=== PATIENT | female | born 1995 | race Caucasian/White ===

== ENCOUNTER 2019-05-17 14:27 | Emergency (ER) | payer OTHER, SELFPAY ==
[2019-05-17 14:28] VITALS: BP 135/81; PULSE 69; RESP 12; TEMP 36.7; O2SAT 99; BMI 22.5
[2019-05-17] MEDS: Ondansetron 4 MG/2 ML Vial IV (15:40)
[2019-05-17] MEDS: 0.9% Normal Saline 1,000 ML 1000 ML IV (15:40)
[2019-05-17 15:58] LABS: Absolute Lymphocyte Count 2.65 X10^3/uL (0.83-4.51); Absolute Neutrophil Count 4.4 X10^3/uL (2.0-7.7); Basophil# 0.02 X10^3/uL; Basophil% 0.3 % (0-1); Eosinophil# 0.16 X10^3/uL; Eosinophils% 2.1 % (0-5); Hematocrit 42.4 % (37-47); Hemoglobin 14.8 g/dL (12.0-15.0); Lymphocyte # 2.65 X10^3/ul (4.0); Lymphocyte % 34.5 % (19-41); Mean Corp Hgb Conc 34.9 g/dL (32-36); Mean Corpuscular Hgb 29.4 pg (27.0-32.0); Mean Corpuscular Volume 84.1 fL (81-99); Mean Platelet Vol. 10.8 fl (6.2-12.0); Monocyte# 0.47 X10^3/uL; Monocyte% 6.1 % (0-10); NRBC Flagged by Analyzer 0 % (0-5); Neutrophil # 4.37 X10^3/uL (2.7-7.7); Neutrophil % 56.9 % (47-70); POSITIVE COUNT YES; RBC Distribution Width CV 12.6 % (11.6-14.6); RBC Distribution Width SD 38.3 fl (35.1-43.9); Red Blood Count 5.04 M/mm3 (4.2-5.4); White Blood Count 7.7 K/mm3 (4.4-11.0)
[2019-05-17 16:01] LABS: Differential Indicated SCAN CRITERIA MET
[2019-05-17 16:10] LABS: AST(SGOT) 27 U/L (15-37); Alanine Aminotransfer ALT/SGPT 49 U/L (13-56); Albumin, Serum 4.2 g/dL (3.2-5.0); Alkaline Phosphatase 65 U/L (45-117); Anion Gap 7 (5-15); BUN 10 mg/dL (7-18); BUN/Creat Ratio 11.5 RATIO (10-20); Bilirubin, Direct 0.06 mg/dL (0.00-0.30); Calcium,Total 9.2 mg/dL (8.5-10.1); Chloride 110 mmol/L (98-107); Creatinine, Serum 0.87 mg/dL (0.55-1.02); EST Glomerular Filtration Rate 84 mL/min (>60); Est Glom Filt Rate - Afr Amer 101 mL/min (>60); Estimated Creatinine Clearance 78.18 ml/min; Globulin 3.5 g/dL (2.2-4.2); Glucose 74 mg/dL (74-106); Lipase 205 U/L (73-393); Potassium 3.9 mmol/L (3.5-5.1); Protein, Total 7.7 g/dL (6.4-8.2); Sodium Level 143 mmol/L (136-145)
[2019-05-17 16:12] LABS: Differential Comment SCANNED; Platelet Estimate ADEQUATE (ADEQ)
--- NOTE | 2019-05-17 17:12 | ED.VISSUMM ---
- ER Visit Summary Date of Service: 05/17/19 Chief Complaint: Abdominal pain History of Present Illness: The patient is a 23 F presenting with abdominal pain. Patient states this has been intermittent for the past 10 days. She has had nausea, vomiting, diarrhea. She states the vomiting has resolved but she continues to have diarrhea. She denies blood in her stool. Denies recent travel or recent antibiotics. She denies sick contacts. Denies bad food exposure. She denies fever. Denies urinary complaints. She states she had small amount of spotting and has not had a period in 6 months. She called a nurse hotline and was advised to come to the ED for evaluation. Physical Examination: Vitals are stable. Patient is afebrile. Alert no acute distress. HEENT exam is unremarkable. Neck is supple. Lungs are clear and equal bilaterally. Heart is regular rate and rhythm. Abdomen is soft mild epigastric tenderness with no guarding or rebound Pelvic: No bleeding. No cervical motion tenderness or adnexal tenderness. IUD strings are visualized. Extremities are unremarkable. Skin is warm and dry. Remainder of exam is unremarkable. Emergency Department Course and Treatment: CBC, chemistries unremarkable. Liver lipase are normal. hCG negative. Patient is concerned about the placement of her IUD. Pelvic ultrasound was ordered and is pending at this time, this will be checked out to the oncoming physician. Disposition: Pending Impression: Abdominal pain This note was generated with [employer] dictation software. It may contain incorrect words, spelling, and punctuation that were not noted in review of the chart prior to signing ED Disposition - Plan for ED Patient: Instructions: ABDOMINAL PAIN, Unknown Cause, (Female) Prescriptions: Dicyclomine HCl [Bentyl] 20 mg PO TIDAC #20 cap Prescription Printed Referrals: Care Physician,No Primary [Primary Care Provider] -
[2019-05-17 17:18] LABS: Internal QC Validated? YES +Cl - CLEAR BKGD; Pregnancy, Serum, hCG Quali. NEGATIVE Negative
--- NOTE | 2019-05-17 17:24 | US_ITS ---
STUDY: ULTRASOUND OF THE FEMALE PELVIS - COMPLETE REASON FOR EXAM: Female, 23 years old. Midline pelvic pain for 3 days LMP: 11/23/2018 TECHNIQUE: Transabdominal and Transvaginal TECHNICAL QUALITY: Adequate. COMPARISON: None. FINDINGS: The uterus is anteverted and is in a midline position. The uterus measures 7.9 x 4.1 x 4.0 cm. Fluid is present in the cervix. The endometrium measures 2 mm in thickness, and is hyperechoic. There is no demonstrated endometrial mass. There is no demonstrated myometrial mass. I.U.D. - The patient does have an I.U.D. The right ovary is visualized. The right ovary measures 2.9 x 2.8 x 2.0 cm. There is no right ovarian cyst or ovarian mass. There is no visualized right adnexal mass or complex lesion. There is normal arterial and normal venous vascularity. The left ovary is visualized. The left ovary measures 3.3 x 2.0 x 1.9 cm. There is no left ovarian cyst or ovarian mass. There is no visualized left adnexal mass or complex lesion. There is normal arterial and normal venous vascularity. There is minimal fluid in the cul-de-sac. Polycystic ovary disease: No. US/Transvaginal Non- IMPRESSION: IUD in the expected location. Fluid in the cervix. Mild free pelvic fluid. Electronically Signed: Terry Butts MD at 18:53 EDT Tel , Service support ,
--- NOTE | 2019-05-17 17:37 | ED.DEP ---
ED Disposition - Plan for ED Patient: Instructions: ABDOMINAL PAIN, Unknown Cause, (Female) Prescriptions: Dicyclomine HCl [Bentyl] 20 mg PO TIDAC #20 capsule Referrals: Care Physician,No Primary [Primary Care Provider] -
[2019-05-17 19:46] VITALS: BP 124/76; PULSE 72; RESP 14; O2SAT 100
== END 2019-05-17 19:46 | disposition home or self-care (01) ==
PROVIDERS: Emergency Provider Emergency Medicine
DX: R10.9 Unspecified abdominal pain (principal); R10.2 Pelvic and perineal pain; R19.7 Diarrhea, unspecified; R11.2 Nausea with vomiting, unspecified; Z79.899 Other long term (current) drug therapy; Z97.5 Presence of (intrauterine) contraceptive device
CPT/HCPCS: 36415; 76830; 80048; 80076; 83690; 84703; 85025; 93976; 96361; 96374; 99285; J7030; A4216; J2405